=== PATIENT | female | born 1945 | race Caucasian/White ===

== ENCOUNTER 2017-01-23 07:53 | Day surgery (SDC) | payer MEDICARE, OTHER ==
[~2017-01-23] VITALS: Ht 163.8 cm; Wt 66.5 kg
[~2017-01-23 07:53] MED LIST: ATRV10T PO; CELE200C PO; CLON0.2T PO; DEXL60CA5 PO; GABA600T PO; MTH10T PO; OGEN PO; RABE20TA5 PO; Sodium Chloride LOK Flush 10 mL Syringe IV PRN; ZLP5T PO; fentaNYL-PF 50 mCg/mL 2 mL Inj IVPUSH PRN
[2017-01-23] MEDS ORDERED: ASPI-973 PO (08:08)
[2017-01-23 08:09] VITALS: BP 106/64; PULSE 65; RESP 16; O2SAT 99
[2017-01-23] MEDS: 0.9% Sodium Chloride 1,000 ML IV SCH ×2 (08:19→08:43)
[2017-01-23 08:49] VITALS: BP 104/58; PULSE 60; RESP 16; O2SAT 93
[2017-01-23 08:58] VITALS: BP 99/67; PULSE 69; RESP 16; O2SAT 97
--- NOTE | 2017-01-23 08:58 | ENDO ---
[address] [address] ENDOSCOPY PROCEDURE PATIENT: MATEO SHAH : 1945 MR#: [id number] ADMIT: 01/23/2017 JOB ID: [id number] DATE: 01/23/2017 TYPE OF OPERATION: Esophagogastroduodenoscopy with biopsy. PREOPERATIVE DIAGNOSIS(ES): Epigastric pain. POSTOPERATIVE DIAGNOSIS(ES): Mild nonerosive gastritis. ANALGESIA: 1. Fentanyl 100 mcg. 2. Versed 5 mg IV administered. COMPLICATIONS: None. BLOOD LOSS: Minimal. DESCRIPTION OF PROCEDURE: After risks and benefits were explained to the patient, informed consent was obtained. After anesthesia administered, an upper endoscope was then inserted into the mouth intubating to the esophagus, stomach, second portion of duodenum. Mucosa carefully examined. After procedure was done, the scope withdrawn and procedure terminated. FINDINGS: Upon inspection of the esophagus, the esophagus was normal without masses, ulcers, lesions. Z-line located 40 cm from incisors. Upon entering the stomach, the stomach showed mild nonerosive gastritis. No masses, ulcers, or lesions were seen. Retroflexion was normal. Duodenal bulb, first and second portion normal. Biopsies taken antrum and body of the stomach and the distal esophagus. IMPRESSION: Mild nonerosive gastritis. RECOMMENDATION: 1. Await pathology results. 2. Followup in GI clinic as needed.
[2017-01-23 09:01] VITALS: BP 103/65; PULSE 49; RESP 16; O2SAT 93
--- NOTE | 2017-01-24 13:31 | PATH ---
SURGICAL PATHOLOGY Attending Physician:Gus Landers MD CASE STATUS: Signed Out PATIENT NAME: MATEO SHAH PID: [id number] : 1945 DATE COLLECTED:01/23/2017 18:15 SPECIMEN: 1: Stomach, Antrum, Biopsy 2: Gastric, Biopsy 3: Esophagus, Biopsy CLINICAL HISTORY: 1). ANTRUM BIOPSY 2). GASTRIC BODY BIOPSY 3). DISTAL ESOPHAGUS BIOPSY FINAL DIAGNOSIS: 1.ANTRUM BIOPSY: ANTRAL AND BODY-TYPE MUCOSA WITH NO DIAGNOSTIC ALTERATIONS. Negative for Helicobacter organisms. Negative for intestinal metaplasia. Negative for dysplasia and malignancy. 2.GASTRIC BODY BIOPSY: BODY-TYPE MUCOSA WITH NO DIAGNOSTIC ALTERATIONS. Negative for Helicobacter organisms. Negative for intestinal metaplasia. Negative for dysplasia and malignancy. 3.DISTAL ESOPHAGUS BIOPSY: SQUAMOCOLUMNAR MUCOSA WITH MILD INFLAMMATORY CHANGES. Negative for intestinal metaplasia. Negative for dysplasia and malignancy. ICD10 codeK20.9 GROSS DESCRIPTION: The specimen is received in three formalin filled containers labeled with the patient's name. 1). The specimen is sublabeled "antrum" and consists of 2 portions of tissue which aggregate to 0.4 x 0.3 x 0.2 CM. The specimen is entirely submitted in cassette 1A. 2). The specimen is sublabeled "gastric body" and consists of 2 portions of tissue which aggregate to 0.2 x 0.2 x 0.2 CM. Specimen is entirely submitted in cassette 2A. 3). The specimen is sublabeled "distal esophagus" and consists of a 0.3 x 0.2 x 0.1 CM portion of tissue which is entirely submitted in cassette 3A. MICRO DESCRIPTION: See diagnosis. ICD-9 CODES: CPT CODES: 1: 19266 2: 34192 3: 78256 Electronically Signed Out Kari Drummond MD [facility]ology [facility], [place] [address] Technical component performed at [facility], [facility] [address], [place], [address]
== END 2017-01-23 23:59 ==
LOC: END 07:53
PROVIDERS: ATTEND Internal Medicine Gastroenterology
DX: K29.70 Gastritis, unspecified, without bleeding (principal); K21.9 Gastro-esophageal reflux disease without esophagitis
CPT/HCPCS: 43239; 88305; G0500; J7030